=== PATIENT | male | born 1935 | race Caucasian/White ===

== ENCOUNTER 2017-04-08 10:26 | Emergency (ER) | payer OTHER ==
[~2017-04-08] VITALS: Ht 167.6 cm; Wt 67.6 kg
[2017-04-08] MEDS ORDERED: VITAMIN B-12500 MCG PO (10:49)
[2017-04-08] MEDS ORDERED: LAMICTAL100 MG PO (10:49)
[2017-04-08] MEDS ORDERED: ATORVASTATIN CA40 MG PO (10:49)
[2017-04-08] MEDS ORDERED: VITAMIN D1000 UNI1 PO (10:50)
== END 2017-04-08 13:15 | disposition home or self-care (01) ==
LOC: ER 10:26
DX: S01.111A Laceration without foreign body of right eyelid and periocular area, initial encounter (principal); Z88.0 Allergy status to penicillin; W10.9XXA Fall (on) (from) unspecified stairs and steps, initial encounter; Y93.89 Activity, other specified; Y92.89 Other specified places as the place of occurrence of the external cause; Y99.8 Other external cause status